=== PATIENT | male | born 1940 | race Caucasian/White ===

== ENCOUNTER → 2017-04-12 | Outpatient (CLI) | payer MEDICARE | LOC: ROC 13:41 | PROVIDERS: ATTEND Radiology Radiation Oncology | DX: C09.9 Malignant neoplasm of tonsil, unspecified (principal); I10 Essential (primary) hypertension; J44.9 Chronic obstructive pulmonary disease, unspecified | CPT/HCPCS: G0463 ==

== ENCOUNTER → 2017-04-13 | Outpatient (CLI) | payer MEDICARE | END | disposition home or self-care (01) | LOC: PETCFH 12:29 | PROVIDERS: ATTEND Radiology Radiation Oncology | DX: C09.8 Malignant neoplasm of overlapping sites of tonsil (principal); I10 Essential (primary) hypertension; I71.4 Abdominal aortic aneurysm, without rupture; K57.30 Diverticulosis of large intestine without perforation or abscess without bleeding; K40.90 Unilateral inguinal hernia, without obstruction or gangrene, not specified as recurrent | CPT/HCPCS: 78815; A9552 ==

== ENCOUNTER 2017-04-22 06:18 | Day surgery (SDC) | payer MEDICARE ==
[~2017-04-22] VITALS: Ht 170.2 cm; Wt 67.7 kg
[2017-04-22] MEDS ORDERED: SODIUM CHLORIDE 0.9% 1,000 ML IV SCH (07:17)
[2017-04-22] MEDS ORDERED: ENAL20TA PO (07:23)
[2017-04-22] MEDS ORDERED: METO50TA82 PO (07:23)
[2017-04-22] MEDS ORDERED: TERA10CA3 PO (07:23)
[2017-04-22] MEDS ORDERED: FLUT50DI PO (07:23)
[2017-04-22] MEDS ORDERED: GEMF600T3 PO (07:23)
[2017-04-22] MEDS ORDERED: IBUP-1223 PO (07:23)
[2017-04-22 07:24] VITALS: BP 155/78
[2017-04-22 07:56] LABS: BASOPHILS # (AUTO) 0.05 x10^3/uL (0-0.1); BASOPHILS % (AUTO) 1 % (0-1); EOSINOPHILS # (AUTO) 0.14 x10^3/uL (0-0.4); EOSINOPHILS % (AUTO) 3 % (1-7); LYMPHOCYTES # (AUTO) 0.57 x10^3/uL (1-3.4); LYMPHOCYTES % (AUTO) 10 % (22-44); MD NO; MEAN CORPUSCULAR HEMOGLOBIN 30.9 pg (27.5-34.5); MEAN CORPUSCULAR VOLUME 93.7 fL (81-97); MEAN PLATELET VOLUME 7.8 fL (7.4-10.4); MONOCYTES # (AUTO) 0.31 x10^3/uL (0.2-0.8); MONOCYTES % (AUTO) 6 % (2-9); NEUTROPHILS # (AUTO) 4.51 x10^3/uL (1.8-6.8); NEUTROPHILS % (AUTO) 81 % (42-75); PLATELET COUNT 413 x10^3/uL (130-400); RED BLOOD COUNT 3.45 x10^6/uL (4.38-5.82); RED CELL DISTRIBUTION WIDTH 21.4 % (9.4-14.8)
[2017-04-22] MEDS ORDERED: FENTANYL PF 250 MCG/5ML ONE (07:56)
[2017-04-22] MEDS ORDERED: MIDAZOLAM 1 MG/ML, 2ML ONE (07:56)
[2017-04-22 08:09] LABS: INTERNATIONAL NORMALIZED RATIO 1.11 (0.93-1.1); PROTHROMBIN TIME 11.4 Seconds (9.6-11.5)
[2017-04-22] MEDS ORDERED: BUPIVACAINE/PF 0.5% ONE (08:09)
[2017-04-22] MEDS ORDERED: EPINEPHRINE 1 MG/ML, 1ML ONE (08:09)
[2017-04-22 08:25] LABS: CHLORIDE 96 mmol/L (98-107)
[2017-04-22 08:26] LABS: ALBUMIN 3.3 g/dL (3.4-5.0); ANION GAP 6 mmol/L (5-15); CALCIUM 8.6 mg/dL (8.5-10.1)
[2017-04-22 08:29] LABS: ALANINE AMINOTRANSFERASE 11 U/L (12-78); ALKALINE PHOSPHATASE 40 U/L (45-117); BILIRUBIN,TOTAL 0.7 mg/dL (0.2-1.0); CREATININE 4.09 mg/dL (0.7-1.3); TOTAL PROTEIN 6.4 g/dL (6.4-8.2)
[2017-04-22] MEDS ORDERED: ROCURONIUM 10 MG/ML,10ML ONE (08:29)
[2017-04-22] MEDS ORDERED: SUCCINYLCHOLINE 20 MG/ML, 10ML ONE (08:29)
[2017-04-22] MEDS ORDERED: PROPOFOL 10 MG/ML, 20ML ONE (08:29)
[2017-04-22] MEDS ORDERED: DEXAMETHASONE 4 MG/ML, 1ML ONE (08:29)
[2017-04-22] MEDS ORDERED: ONDANSETRON 2MG/ML, 2ML ONE (08:29)
[2017-04-22] MEDS ORDERED: HYDROmorphone 1 MG/ML, 1ML IV PRN (08:30)
[2017-04-22] MEDS ORDERED: FENTANYL PF 100 MCG/2ML IV PRN (08:30)
[2017-04-22] MEDS ORDERED: OXYcodone 5 MG/5 ML ORAL.SOL UDC PO PRN (08:30)
[2017-04-22] MEDS ORDERED: ONDANSETRON 2MG/ML, 2ML IVPush PRN (08:30)
[2017-04-22] MEDS ORDERED: ACETAMINOPHEN 325 MG TABLET PO PRN (08:30)
[2017-04-22] MEDS ORDERED: ALBUTEROL/IPRATROPIUM 2.5MG/0.5MG, 3 ML ONE (09:14)
[2017-04-22] MEDS ORDERED: ALBUTEROL SULFATE 2.5 MG/3 ML NPPB PRN (09:30)
[2017-04-22] MEDS ORDERED: ALBUTEROL/IPRATROPIUM 2.5MG/0.5MG, 3 ML NPPB PRN (09:30)
== END 2017-04-22 13:00 ==
LOC: OUT 06:18
PROVIDERS: ATTEND Surgery
DX: C09.9 Malignant neoplasm of tonsil, unspecified (principal); K21.9 Gastro-esophageal reflux disease without esophagitis; I12.0 Hypertensive chronic kidney disease with stage 5 chronic kidney disease or end stage renal disease; F17.210 Nicotine dependence, cigarettes, uncomplicated; N18.6 End stage renal disease; Z86.73 Personal history of transient ischemic attack (TIA), and cerebral infarction without residual deficits; Z98.890 Other specified postprocedural states
CPT/HCPCS: 36415; 43653; 80053; 85025; 85610; 93005; 94640; B4087; J0171; J0330; J1100; J2405; J2704; J3010; J3490; J7030; J2250

== ENCOUNTER → 2017-04-26 | Outpatient (CLI) | payer MEDICARE ==
[~2017-04-26] MED LIST: ENAL20TA PO; FLUT50DI PO; GEMF600T3 PO; IBUP-1223 PO; METO50TA82 PO; TERA10CA3 PO
== END ==
LOC: ROC 08:45
PROVIDERS: ATTEND Radiology Radiation Oncology
DX: Z02.9 Encounter for administrative examinations, unspecified (principal)

== ENCOUNTER → 2017-08-25 | Outpatient (CLI) | payer MEDICARE | END | disposition home or self-care (01) | LOC: CFH 10:45 | PROVIDERS: ATTEND Radiology Radiation Oncology | DX: C09.8 Malignant neoplasm of overlapping sites of tonsil (principal); M50.31 Other cervical disc degeneration, high cervical region; I65.29 Occlusion and stenosis of unspecified carotid artery; J84.10 Pulmonary fibrosis, unspecified; N26.1 Atrophy of kidney (terminal); R16.1 Splenomegaly, not elsewhere classified; Z92.3 Personal history of irradiation | CPT/HCPCS: 70490; 71250 ==

== ENCOUNTER → 2017-08-26 | Outpatient (CLI) | payer MEDICARE | END | disposition home or self-care (01) | LOC: ROC 07:53 | PROVIDERS: ATTEND Radiology Radiation Oncology | DX: Z08 Encounter for follow-up examination after completed treatment for malignant neoplasm (principal); C09.8 Malignant neoplasm of overlapping sites of tonsil; F17.200 Nicotine dependence, unspecified, uncomplicated | CPT/HCPCS: G0463 ==

== ENCOUNTER → 2017-12-30 | Outpatient (CLI) | payer MEDICARE ==
[~2017-12-30] MED LIST changes: -GEMF600T3 PO; +GEMF600T4 PO
== END | disposition home or self-care (01) ==
LOC: ROC 11:16
PROVIDERS: ATTEND Radiology Radiation Oncology
DX: Z08 Encounter for follow-up examination after completed treatment for malignant neoplasm (principal); C09.8 Malignant neoplasm of overlapping sites of tonsil
CPT/HCPCS: G0463